=== PATIENT | male | born 1940 | race Caucasian/White ===

== ENCOUNTER 2019-01-29 07:13 | Inpatient (IN) | payer MEDICARE, OTHER ==
--- NOTE | 2019-01-10 13:04 | HP ---
HISTORY AND PHYSICAL: DATE OF ADMISSION/SURGERY: 01/29/19 DATE OF OFFICE VISIT: 01/09/19 SURGEON: Fabiola Lomas MD * (DICTATED BY CARMELITA MISTRY) PROCEDURE: Left total knee arthroplasty. CHIEF COMPLAINT: Left knee pain. HISTORY OF PRESENT ILLNESS: Mr. Ngo is a 78-year-old gentleman with continued complaints of left knee pain. He has failed conservative treatment and elected to proceed with a left total knee arthroplasty. PAST MEDICAL HISTORY: Prostate cancer and GERD. PAST SURGICAL HISTORY: Surgery for bowel obstruction, radiation treatment for prostate cancer, tonsillectomy, penile implant, and left shoulder surgery. CURRENT MEDICATIONS: 1. Terazosin 5 mg a day. 2. PreserVision AREDS 2 tabs twice a day. 3. Calcium with vitamin D. 4. Multivitamin. 5. Tylenol as needed. 6. Megestrol 20 mg 1 to 2 tabs daily. 7. Testosterone suppression injection every 4 months. ALLERGIES: To SULFA. FAMILY HISTORY: Diabetes, COPD, cancer. SOCIAL HISTORY: He is a 78-year-old gentleman, lives with his . He does not smoke or use drugs. Uses alcohol rarely. REVIEW OF SYSTEMS: A complete 14-point review of systems was reviewed with the patient. Positive for GERD and some occasional lightheadedness. He denies history of DVT, PE, hepatitis, HIV, or anesthesia problems. PHYSICAL EXAMINATION GENERAL: He is well developed, well nourished, in no acute distress. VITAL SIGNS: He stands 68 inches tall, weighs 189 pounds. Blood pressure is 120/62, heart rate is 72. HEENT: Normocephalic, atraumatic. NECK: Supple. No palpable lymph nodes. PULMONARY: The lungs are clear to auscultation bilaterally. CARDIO: Regular rate and rhythm. Strong S1, S2. ABDOMEN: Soft, nontender, nondistended. NEUROLOGICAL: He is alert and oriented x3. MUSCULOSKELETAL: Left lower extremity: The skin is intact. There are no open wounds or abrasions. There is a moderate effusion of the left knee joint. Range of motion is 5 to 120 degrees of flexion with patellofemoral crepitus. He has tenderness along the medial joint line. He is able to dorsiflex and plantarflex. He has a 2+ dorsalis pedis pulse and intact sensation. ASSESSMENT AND PLAN: Mr. Ngo is a 78-year-old gentleman with end-stage osteoarthritis of the left knee. He has failed conservative treatment and elected to proceed with a left total knee arthroplasty. The surgery is scheduled for 01/29/[address] Lomas discussed the risks and benefits of the surgery at today's visit and all of his questions were answered. He will follow up with Dr. Lomas 2 weeks after the surgery. CARMELITA MISTRY [id number]/CPS #: [id number] NIEVES
[~2019-01-29 07:13] MED LIST: Buffered Lidocaine 1% SYRIN* 1 ML/SYRINGE INTRADERM ONE; Lactated Ringers 1000 ML Bag* 1,000 ML IV SCH; Tranexamic Acid 1,000 MG in NS 0.9% 50 ML* (outpatient use) IV SCH
--- OUTSIDE RECORDS SUMMARY | 2019-01-29 07:16 | XMS REPORT | Continuity of Care Document ---
:1940 External Reference #:[id number] Author Name Fabiola Lomas M.D. (transmitted by agent of provider Deedee Butts) Address [address] [place] [address] Care Team Providers Name Role Phone Naveen Luna MD - Family Medicine Care Team Information Security Officer Problems Active Problems Provider Date Localized, primary osteoarthritis Jona Brock M.D. Onset: 07/04/2018 Social History Type Date Description Comments Sex Unknown ETOH Use Occasionally consumes alcohol Tobacco Use Start: Unknown End: Patient is a former smoker Unknown Smoking Status Reviewed: 01/09/19 Patient is a former smoker Exercise Type/Frequency Exercises regularly Allergies, Adverse Reactions, Alerts Active Allergies Reaction Severity Comments Date Sulfamethizole RASH 07/04/2018 Ibuprofen 11/23/2018 Medications Active Medications SIG Qnty Indications Ordering Provider Date Terazosin HCL 1 by mouth every Unknown 5mg Capsules day Preservision Areds 2 1 by mouth two Unknown Areds times per day 2 Capsules Calcium 600 + D 1 by mouth twice Unknown a day [id number] Tablets Multivitamin Adult 1 by mouth every Unknown Tablets day Acetaminophen Extra 2 tabs by mouth Unknown Strength every 8 hours as 500mg Tablets needed for pain or fever Magestrol Unknown Testosterone Unknown Suppression Injection Every 4 Months Medications Administered in Office Medication SIG Qnty Indications Ordering Provider Date Depomedrol 40MG Jona Brock M.D. 07/04/2018 Injection Depomedrol 40MG Jona Brock M.D. 07/04/2018 Injection Hyaluron Or Onur Pablo M.D. 08/09/2012 Derivative,Orthovisc,For Intra-Articular Inj Per Dose Injection Hyaluron Or Onur Pablo M.D. 08/09/2012 Derivative,Orthovisc,For Intra-Articular Inj Per Dose Injection Hyaluron Or Onur Pablo M.D. 08/09/2012 Derivative,Orthovisc,For Intra-Articular Inj Per Dose Injection Hyaluron Or Onur Pablo M.D. 08/02/2012 Derivative,Orthovisc,For Intra-Articular Inj Per Dose Injection Hyaluron Or Onur Pablo M.D. 08/02/2012 Derivative,Orthovisc,For Intra-Articular Inj Per Dose Injection Hyaluron Or Onur Pablo M.D. 08/02/2012 Derivative,Orthovisc,For Intra-Articular Inj Per Dose Injection Hyaluron Or Onur Pablo M.D. 07/26/2012 Nat,Orthovisc,For Intra-Articular Inj Per Dose Injection Hyaluron Or Onur Pablo M.D. 07/26/2012 Nat,Orthovisc,For Intra-Articular Inj Per Dose Injection Hyaluron Or Onur Pablo M.D. 01/26/2012 Derivative,Orthovisc,For Intra-Articular Inj Per Dose Injection Hyaluron Or Onur Pablo M.D. 01/26/2012 Derivative,Orthovisc,For Intra-Articular Inj Per Dose Injection Hyaluron Or Onur Pablo M.D. 01/19/2012 Derivative,Orthovisc,For Intra-Articular Inj Per Dose Injection Hyaluron Or Onur Pablo M.D. 01/19/2012 Nat,Orthovisc,For Intra-Articular Inj Per Dose Injection Hyaluron Or Onur Pablo M.D. 01/12/2012 Nat,Orthovisc,For Intra-Articular Inj Per Dose Injection Hyaluron Or Onur Pbalo M.D. 01/12/2012 Nat,Orthovisc,For Intra-Articular Inj Per Dose Injection Depomedrol 80MG Onur Pablo M.D. 06/23/2011 Injection Depomedrol 80MG Onur Palbo M.D. 06/09/2011 Injection Depomedrol 80MG Onur Pablo M.D. 08/26/2010 Injection Immunizations Description No Information Available Vital Signs Date Vital Result Comment 01/09/2019 8:28am Height 68 inches 5'8" Weight 189.00 lb Heart Rate 72 /min BP Systolic 120 mmHg BP Diastolic 62 mmHg Body Temperature 96.2 F Pain Level 6 BMI (Body Mass Index) 28.7 kg/m2 10/29/2018 9:14am Height 68 inches 5'8" Weight 180.00 lb Heart Rate 88 /min BP Systolic 138 mmHg BP Diastolic 90 mmHg Pain Level 5 BMI (Body Mass Index) 27.4 kg/m2 Results Description No Information Available Procedures Description No Information Available Medical Devices Description No Information Available Encounters Type Date Location Provider Dx Diagnosis Office Visit 10/29/2018 [facility] Fabiola Lomas, M25.561 Pain in right 9:00a at [place]iam knee M25.562 Pain in left knee M25.461 Effusion, right knee M25.462 Effusion, left knee M17.0 Bilateral primary osteoarthritis of knee Assessments Date Code Description Provider 01/09/2019 M25.562 Pain in left knee Fabiola Lomas M.D. 01/09/2019 M25.462 Effusion, left knee Fabiola Lomas M.D. 01/09/2019 M17.0 Bilateral primary osteoarthritis of knee Fabiola Lomas M.D. 11/26/2018 M25.562 Pain in left knee Fabiola Lomas M.D. 11/26/2018 M25.462 Effusion, left knee Fabiola Lomas M.D. 11/26/2018 M17.0 Bilateral primary osteoarthritis of knee Fabiola Lomas M.D. 10/29/2018 M25.561 Pain in right knee Fabiola Lomas M.D. 10/29/2018 M25.562 Pain in left knee Fabiola Lomas M.D. 10/29/2018 M25.461 Effusion, right knee Fabiola Lomas M.D. 10/29/2018 M25.462 Effusion, left knee Fabiola Lomas M.D. 10/29/2018 M17.0 Bilateral primary osteoarthritis of knee Fabiola Lomas M.D. Plan of Treatment Future Appointment(s):02/11/2019 9:30 am - [facility] [place]/29/2019 4:30 pm - Fabiola Lomas M.D. at [facility]01/09/2019 - Fabiola Lomas M.D.M25.562 Pain in left kneeFollow up:Follow up: 2 weeks after [id number] Effusion, left kneeM17.0 Bilateral primary osteoarthritis of knee Functional Status Description No Information Available Mental Status Description No Information Available Referrals Description No Information Available
--- OUTSIDE RECORDS SUMMARY | 2019-01-29 07:16 | XMS REPORT | Continuity of Care Document ---
:1940 External Reference #:[id number] Author Name Pauline Lopez, SABINA Address [address] [place] [address] Care Team Providers Name Role Phone Naveen Fermin MD - Ophthalmology Care Team Information Supervisor Fitting Problems Active Problems Provider Date Malaise and fatigue Naveen Luna M.D. Onset: 09/21/2011 Infective otitis externa Naveen Luna M.D. Onset: 04/20/2012 Otitis media Naveen Luna M.D. Onset: 04/20/2012 Cataract Naveen Luna M.D. Onset: 05/01/2012 Disorder of prostate Naveen Luna M.D. Onset: 05/01/2012 Adult health examination Naveen Luna M.D. Onset: 05/01/2012 Essential hypertension Naveen Luna M.D. Onset: 05/01/2012 Dizziness and giddiness Naveen Luna M.D. Onset: 09/03/2013 Backache Naveen Luna M.D. Onset: 12/27/2013 Acute upper respiratory infection Naveen Luna M.D. Onset: 03/10/2014 Social History Type Date Description Comments Sex Unknown Allergies, Adverse Reactions, Alerts Active Allergies Reaction Severity Comments Date Sulfa Drugs 08/28/2007 Medications Active Medications SIG Qnty Indications Ordering Date Provider Transderm-Scop (1.5 use q3days 1bx Naveen Coker 08/14/2018 MG) Alejandro Luna 1mg/3Days Patches 72HR Preservision Areds 2 1 by mouth every Naveen Coker 03/01/2016 day Alejandro Luna Areds 2 Capsules Calcium 600 + D one by mouth daily Naveen Coker 03/01/2016 Alejandro Luna [id number] Tablets Terazosin HCL take one capsule by Unknown 5mg mouth once a day Capsules Multivitamin Adult 1 by mouth every Unknown day Tablets Acetaminophen ER 1 by mouth bid Unknown 650mg Tablets ER Testosterone Cypionate use 1/2 cubic Unknown centimeters every 200mg/ml Solution 3-4 wks History Medications Ciprodex Use 4 drops 1bottles H60.92 Ronnie Ortiz, 07/04/2018 - 0.3-0.1% twice a day in M.D. 10/30/2018 Suspension the right ear for 7 days. Amoxicillin 1 tablet three 14tabs H66.91 Ronnie A. Angel, 06/18/2018 - 500mg times a day for M.D. 06/18/2018 Tablets 7 days. Amoxicillin 1 tablet three 21tabs H66.91 Ronnie A. Angel, 06/18/2018 - 500mg times a day for M.D. 07/04/2018 Tablets 7 days. Immunizations CPT Code Status Date Vaccine Lot # [id number] Given 11/28/2017 High-Dose, Influenza Virus Vacccine-fluzone 65 and older 94354 Given 12/17/2016 High-Dose, Influenza Virus Vacccine-fluzone 65 and older 12838 Given 07/05/2016 Pneumococcal Conjugate Vacc-13 [id number] Given 12/25/2014 High-Dose, Influenza Virus Vacccine-fluzone 65 and older 00714 Given 05/22/2008 Zostivax [id number] [id number] Given 02/05/2008 Pneumococcal Immunization [id number] 98686 Given 02/05/2008 DO Not Use Split Influenza Virus Vaccine [id number] Vital Signs Date Vital Result Comment 12/11/2018 3:20pm BP Systolic 130 mmHg BP Diastolic 82 mmHg Heart Rate 62 /min Body Temperature 97.5 F Respiratory Rate 16 /min Height 68.25 inches 5'8.25" Weight 186.00 lb BMI (Body Mass Index) 28.1 kg/m2 10/30/2018 10:45am BP Systolic 120 mmHg BP Diastolic 70 mmHg Heart Rate 80 /min Body Temperature 98.4 F Respiratory Rate 16 /min Height 68.25 inches 5'8.25" Weight 181.00 lb BMI (Body Mass Index) 27.3 kg/m2 Results Test Date Facility Test Result H/L Range Note CBC Electronic (Fma New) 12/11/2018 [facility] WBC 6.44 4.0-10.0 (607)- - RBC 3.77 Low 3.93-6.0 Hemoglobin (Fma/CMC/CTX) 11.8 g/dL Low 12.0-17.0 Hematocrit (Fma/CMC/CTX) 35.6 % 35.0-50.0 Mean Corpuscular Vol 94.4 fL 80-95 Mean Corpuscular Hemoglobin 31.3 pg 25.6-32.2 Mean Corpuscular Hemo Concen 33.1 g/dL 32.2-36.0 Platelets 199 10^3/ul 163-400 RDW-CV 12.3 11.6-14.4 Mean Platelet Volume 10.4 fL 8.0-12.4 Absolute Neutrophils BLD 3.54 1.56-6.13 Absolute Lymphocytes 2.15 1.18-3.74 Absolute Monocytes BLD Auto 0.52 0.24-0.82 Absolute Eos Blood 0.17 0.04-0.54 Absolute Basophils 0.05 0.01-0.08 Neutrophil % 54.9 % 34.0-70.0 Lymph% 33.4 % 20.0-52.0 Monocytes % 8.1 % 5.0-12.0 Eos % 2.6 % 0.7-7.0 Basophil% 0.8 % 0-1.2 CBC Auto Diff 11/12/2018 [facility] White Blood Count 6.0 10^3/uL Normal 3.5- 10.8 Red Blood Count 3.78 10^6/uL Low 4.18-5.48 Hemoglobin 12.1 g/dL Low 14.0-18.0 Hematocrit 35 % Low 42-52 Mean Corpuscular Volume 93 fL Normal 80-94 Mean Corpuscular Hemoglobin 32 pg High 27-31 Mean Corpuscular HGB Conc 34 g/dL Normal 31-36 Red Cell Distribution Width 13 % Normal 10-15 Platelet Count 183 10^3/uL Normal 150-450 Mean Platelet Volume 8.4 fL Normal 7.4-10.4 Abs Neutrophils 3.6 10^3/uL Normal 1.5-7.7 Abs Lymphocytes 1.7 10^3/uL Normal 1.0-4.8 Abs Monocytes 0.5 10^3/uL Normal 0-0.8 Abs Eosinophils 0.1 10^3/uL Normal 0-0.6 Abs Basophils 0.0 10^3/uL Normal 0-0.2 Abs Nucleated RBC 0.0 10^3/uL Granulocyte % 60.7 % Lymphocyte % 28.5 % Monocyte % 8.4 % Eosinophil % 1.7 % Basophil % 0.7 % Nucleated Red Blood Cells % 0.1 Laboratory test finding 11/12/2018 [facility] PSA Diagnostic 0.622 ng/mL Normal 0-4.0 Basic Metabolic Panel 11/12/2018 [facility] Sodium 141 mmol/L Normal 135-145 Potassium 4.2 mmol/L Normal 3.5-5.0 Chloride 106 mmol/L Normal 101-111 Co2 Carbon Dioxide 26 mmol/L Normal 22-32 Anion Gap 9 mmol/L Normal 2-11 Glucose 114 mg/dL High 70-100 Blood Urea Nitrogen 28 mg/dL High 6-24 Creatinine 1.40 mg/dL High 0.67-1.17 BUN/Creatinine Ratio 20.0 Normal 8-20 Calcium 9.7 mg/dL Normal 8.6-10.3 Egfr Non- 48.9 >60 Egfr 59.2 >60 1 Laboratory test 11/12/2018 [facility] Testosterone Total < 10.00 ng/dL Low 240- 950 2 finding Laboratory test 10/16/2018 [facility] Surgical Pathology SEE RESULT 3, 4 finding BELOW Laboratory test 09/10/2018 [facility] Testosterone Total < 10.00 ng/dL Low 240- 950 finding PSA Diagnostic 0.492 ng/mL 0-4.0 5 1 Because ethnic data is not always readily available, this report includes an eGFR for both -Americans and non- Americans. The National Kidney Disease Education Program (NKDEP) does not endorse the use of the MDRD equation for patients that are not between the ages of 18 and 70, are , have extremes of body size, muscle mass, or nutritional status, or are non- or non-. According to the National Kidney Foundation, irrespective of diagnosis, the stage of the disease is based on the level of kidney function: Stage Description GFR(mL/min/1.73 m(2)) 1 Kidney damage with normal or decreased GFR 90 2 Kidney damage with mild decrease in GFR 60-89 3 Moderate decrease in GFR 30-59 4 Severe decrease in GFR 15-29 5 Kidney failure <15 (or dialysis) 2 Consistent with Previous Results Reported on 09/10/18 3 4192-A:Morphology: erythematous papule with hyperkeratotic scale;DDX: Squamous Cell Carcinoma vs. 4 SEE RESULT BELOW Name: JOIE NGO : [address]: Kaylin Mendez MD Acct: [id number] Unit: [id number] AGE: 78 Location: [facility] Re10/16/18 SEX: M Status: REG REF SPEC: [id number] BOB: [birth year][address] [facility] [address]: Kaylin Mendez MD REQ: [id number] RECD: 10/16/18 STATUS: MARK LARA DR: Naveen Luna MD _ ORDERED: LEVEL 4 COMMENTS: [id number] FINAL DIAGNOSIS Skin, right upper lateral abdomen, biopsy: -- Verrucous seborrheic keratosis, irritated and inflamed. PRE-OPERATIVE DIAGNOSIS Erythematous papule with hyperkeratotic scale, squamous cell carcinoma vs inflamed seborrheic keratosis GROSS DESCRIPTION The specimen is received in formalin labeled, Right Upper Lateral Abdomen, and consists of a 0.9 x 0.7 cm magallanes-mojica ovoid scaly skin shave with a central 0.7 x 0.5 x 0.4 cm joel keratotic nodule. The specimen is inked, serially sectioned and entirely submitted in one cassette. Signed by and Reported on: Pauline Espinosa MD 10/17/18 1014 END OF REPORT DEPARTMENT OF PATHOLOGY, [address] [place] [address] Hermann Santoro M.D. Director [facility] # [id number] 5 Serum levels of PSA measured using the [employer] Dane DXI Hybritech immunoassay should not be interpreted as absolute evidence of the presence or absence of disease. The PSA value should be used in conjunction with other pertinent clinical diagnostic procedures. A PSA value in the range of 0.1 to 0.6 ng/ml is indeterminate if being used as an indicator of recurrent or residual disease. The values obtained with different assay methods or kits cannot be used interchangeably. Procedures Date Code Description Status 10/30/2018 47832 Electrocardiogram Complete Completed 03/13/2008 05162167 Colonoscopy Completed Medical Devices Description No Information Available Encounters Type Date Location Provider Dx Diagnosis Office Visit 07/04/2018 [facility] Cervantes, H60.92 Unspecified otitis 1:45p PA externa, left ear Office Visit 06/18/2018 [facility] Cervantes, H66.91 Otitis media, 9:00a CARMELITA unspecified, right ear Assessments Date Code Description Provider 12/11/2018 R42 Dizziness and giddiness SABINA Perales 10/30/2018 Z00.00 Encounter for general adult medical Naveen Luna M.D. examination without abnormal findings 10/30/2018 C61 Malignant neoplasm of prostate Naveen Luna M.D. 10/30/2018 M25.562 Pain in left knee Naveen Luna M.D. 07/04/2018 H60.92 Unspecified otitis externa, left ear CARMELITA Nguyen 06/18/2018 H66.91 Otitis media, unspecified, right ear CARMELITA Nguyen Plan of Treatment Future Appointment(s):12/31/2018 1:00 pm - Naveen Luna M.D. at [facility]/11/2018 - Pauline Lopez, [id number] Dizziness and giddinessAllComments: Medication Management Patient Understands medications he 's taking? Yes No Are there Barriers to Adherence? Yes No Has the patient been asked about herbal supplements and therapies, andOTC meds? Yes No As always, we strongly encourage a healthy diet and making physical activity a part of your every day life. If you have questions about how or where to start, please contact the office. Functional Status Description No Information Available Mental Status Description No Information Available Referrals Refer to Dr Reason for Referral Status Appt Date Rei Massey MD chronic otitis externa, hearing aide use. jw Scheduled 07/27/2018 [address] [place], [place] [id number] [phone]
[2019-01-29] MEDS ORDERED: ceFAZolin 2 GM in NS PREMIX(*) 2 GM/100 ML BAG IVPB ONE (07:37)
[2019-01-29] MEDS ORDERED: Buffered Lidocaine 1% SYRIN* 1 ML/SYRINGE INTRADERM ONE (07:37)
[2019-01-29] MEDS ORDERED: Propofol* 10 MG/ML 20 ML BTL ONE (07:53)
[2019-01-29] MEDS ORDERED: Midazolam* 1 MG/ML 2 ML VIAL (2 MG) ONE (07:54)
[2019-01-29] MEDS ORDERED: Dexmedetomidine* 200 MCG/2 ML 2 ML VIAL ONE (07:54)
[2019-01-29] MEDS ORDERED: ROPIVACAINE 5 MG/ML 30 ML BTL (0.5%) ONE ×2 (07:54→08:45)
[2019-01-29] MEDS ORDERED: Lidocaine 2% PF * 5 ML VIAL ONE ×3 (08:02→09:05)
[2019-01-29] MEDS ORDERED: Bupivacaine 0.5% SDV PF* 30ML VIAL ONE (09:05)
[2019-01-29] MEDS ORDERED: Propofol* 500 MG/50 ML BTL ONE (09:20)
[2019-01-29] MEDS ORDERED: KETAMINE HCL* 50 MG/ML 10 ML VIAL ONE (09:22)
[2019-01-29] MEDS ORDERED: Dexamethasone IV* 4 MG/ML 1 ML (4 MG) ONE (09:55)
[2019-01-29] MEDS ORDERED: Atropine 1MG/ML INJ* 1 ML VIAL ONE (10:21)
[2019-01-29] MEDS ORDERED: EPHEDrine (Pressors)* 50 MG/ML VIAL ONE (10:26)
[2019-01-29] MEDS ORDERED: Ondansetron INJ* 2 MG/ML VIAL IV PRN ×2 (10:27→11:41)
[2019-01-29] MEDS ORDERED: Ketorolac INJ* 30 MG/ML 1 ML VIAL IV PRN (10:27)
[2019-01-29] MEDS ORDERED: Acetaminophen IV 1GM/100ML * 10 MG/ML VIAL IVPB ONE (10:27)
[2019-01-29] MEDS ORDERED: Naloxone* 0.4 MG/ML 1 ML VIAL IV PRN (10:27)
[2019-01-29] MEDS ORDERED: oxyCODONE TAB* 5 MG TAB PO PRN (10:27)
[2019-01-29] MEDS ORDERED: HYDROmorphone INJ1* 1 MG/ML SYRINGE IV PRN (10:27)
[2019-01-29] MEDS ORDERED: Polyethylene Glycol 3350* 17 GM PACKET PO PRN (11:41)
[2019-01-29] MEDS ORDERED: diPHENhydraMINE PO* 25 MG PO PRN (11:41)
[2019-01-29] MEDS ORDERED: Ondansetron ODT TAB* 4 MG PO PRN (11:41)
[2019-01-29] MEDS ORDERED: traMADol TAB* 50 MG PO PRN (11:41)
[2019-01-29] MEDS ORDERED: diPHENhydraMINE IV* 50 MG/ML 1 ml VIAL (BENADRYL) IV PRN (11:41)
[2019-01-29] MEDS ORDERED: Morphine INJ* 2 MG/ML 1 ML SYRINGE (TWO MG - NEW SYRINGE VERSION) IV PRN (11:41)
[2019-01-29] MEDS ORDERED: Magnesium Hydroxide LIQ* 30 ML UDC PO PRN (11:41)
[2019-01-29] MEDS ORDERED: Ondansetron TAB* 4 MG PO PRN (11:41)
[2019-01-29] MEDS ORDERED: Labetalol IV* 5 MG/ML 20 ML VIAL ONE (12:35)
[2019-01-29] MEDS: Lactated Ringers 1000 ML Bag* 1,000 ML IV SCH (14:07)
[2019-01-29] MEDS: Acetaminophen TAB* 325 MG PO SCH ×2 (14:11→20:24)
[2019-01-29] MEDS: oxyCODONE/Acetamin 5/325 MG* TAB PO PRN ×2 (14:35→20:03)
--- NOTE | 2019-01-29 15:27 | OP ---
Operative Report - Blank - Operative Report Date of Operation: 01/29/19 Note: JOIE VILLARREAL 1940 Date of Surgery: 01/29/19 Fabiola Lomas MD [employer]ospace Physiological Technician: Liyah MAE did help throughout the procedure with preparation of the knee, wound retraction, manipulation of the knee, and wound closure. Anesthesiologist: Leeroy PLATT Anesthesia Type: Spinal Preoperative Diagnosis: Left severe degenerative osteoarthritis of the knee Postoperative Diagnosis: As above Procedure Performed: Left Total Knee Arthroplasty Tourniquet time: 53 minutes Complications: None Specimen: Bone and cartilage from the left knee joint sent to pathology. Hardware Used: Cemented Read and Nephew total knee hardware was used - For the femur a size 6 left legion posterior stabilized femoral component, for the tibia a size 6 left nakia II tibial baseplate, for the insert a size 11mm 5-6 posterior stabilized articular polyethylene insert, and for the patella a size 35 3-peg all poly patella. Brief History/Indication: JOIE VILLARREAL was known in clinic and had a history of severe left knee pain and swelling. He failed conservative treatment with anti-inflammatories, pain pills, intra-articular injections and physical therapy. He elected to undergo left total knee arthroplasty due to continued pain and decreased quality of life. Radiographs showed severe end stage osteoarthritis of the knee with bone on bone contact. Informed consent was obtained from the patient. He understood the risks of surgery included but were not limited to: bleeding, infection, damage to nearby structures, intraoperative fracture, nerve palsy, failure of the hardware, early loosening, knee stiffness or loss of motion, anesthesia complications, stroke, heart attack , blood clot and . He wished to proceed. Intra-Operative Findings: Intraoperatively the patient was noted to have severe loss of cartilage in all 3 compartments of the knee. Description of the Procedure: JOIE VILLARREAL was identified in the preanesthesia unit. His left knee was marked as the correct operative side. Informed consent was signed and placed in the chart. The patient was taken to the operating room and placed under anesthesia without complication. A lopez catheter was placed. A tourniquet was placed on the left thigh. The left lower extremity was prepped and draped in the usual sterile fashion. Preoperative time-out was made to correctly identify the patient, side and site. Appropriate intraoperative antibiotics were given within one hour of incision. Tourniquet was inflated. A midline incision was made and carried sharply down to the extensor mechanism. A new 10 blade was used to make a standard medial parapatellar arthrotomy. The patella was subluxed laterally. Electrocautery was used to dissect soft tissue off the superomedial tibia to the midsagittal plane. The knee was flexed up. The anterior horn of the lateral meniscus and the ACL were sharply incised. A drill was used to enter the distal femur. The intramedullary distal femoral cutting guide was pinned on the distal femur. The oscillating saw was used to make the distal femoral cut. The external rotation guide was pinned on the distal femur and the distal femur was sized to a size 6. The size 6 multi-cutting jig was pinned on the distal femur. The oscillating saw was used to make the appropriate 4 chamfer cuts. Next the PCL was completely released. The extramedullary tibial cutting guide was pinned on the proximal tibia and the oscillating saw was used to make the proximal tibial cut perpendicular to the mechanical axis of the tibia. The bone was carefully removed. The knee was brought out into full extension. The spacer block was placed and had excellent fit with the knee in full extension. The medial and lateral ligaments were well balanced. The flexion and extension gaps were well balanced. The knee was flexed up. Lamina pilot safety inspector was placed both medially and laterally. Any remaining meniscus was removed with electrocautery. Curved osteotome was used to remove any posterior osteophytes. The tibial tray and drop arsalan were placed and confirmed a satisfactory tibial cut. The size 6 left femoral trial was impacted onto the distal femur. This trial had excellent fit and stability. The box for the posterior stabilized implant was prepared using a box cut osteotome and a reamer. Next a tibial tray trial and 11 mm insert trial was placed. The knee was taken through a range of motion and had full extension to 130 degrees of flexion. Patellofemoral tracking was satisfactory. The patella was inverted and sized to a size 35. Three peg holes were drilled through the size 35 drill guide. The trial patella was placed and the knee was taken through a range of motion. There was satisfactory patellofemoral tracking. All trials were removed. The tibia was subluxed anteriorly and sized to a size 6. The proximal tibial was prepared with a size 6 keel punch. All bony cut surfaces were irrigated with sterile saline and dried. Final implants were cemented into place starting with the tibia, followed by the femur, and last the patella. A 9 mm insert trial was placed and the knee was brought into full extension. Tourniquet was turned down and the knee was copiously irrigated with sterile saline. Electrocautery was used to obtain meticulous hemostasis. Once the cement had fully cured, the insert trial was removed. Any excess cement was removed from around the hardware and capsule. Final insert chosen was a 11 mm posterior stabilized Nakia II articular insert size 5-6. Stability of the insert was checked and noted to be stable. The extensor mechanism was closed using number 1 vicryls. The rest of the incision was closed in a layered fashion using 0 and 2-0 vicryls. The skin was closed using 3-0 nylon suture. Sterile xeroform, 4x4s and webril were used to cover the incision. Serg wrap and cold pack were used to cover the dressings. The patients anesthesia was reversed without difficulty. He was taken to the PACU in stable condition. Intended weight-bearing will be as tolerated.
--- NOTE | 2019-01-29 16:19 | PN ---
Progress Note - Progress Note Date of Service: 01/29/19 Note: OOB to chair, pain moderate, controlled with PO meds; able to dorsi flex/ plantar flex, 2+ DP pulse and intact sensation
[2019-01-29] MEDS: oxyCODONE TAB* 5 MG TAB PO PRN ×2 (16:28→22:31)
[2019-01-29] MEDS: Cyclobenzaprine TAB* 10 MG PO PRN ×2 (16:29→22:31)
[2019-01-29] MEDS: ceFAZolin 1 GM ADVAN(*) 1 GM in NS 0.9% 50 ML* 50 ML IVPB SCH (17:42)
[2019-01-29] MEDS: Magnesium Hydroxide LIQ* 30 ML UDC PO SCH (20:05)
[2019-01-29] MEDS: Docusate CAP* 100 MG PO SCH (20:05)
[2019-01-29] MEDS: Terazosin CAP* 5 MG PO SCH (20:24)
[2019-01-29] MEDS ORDERED: Multivitamins/Mins (NF) AREDS2 1 CAP CAP PO SCH (21:00)
[2019-01-30] MEDS: oxyCODONE/Acetamin 5/325 MG* TAB PO PRN ×4 (00:13→18:14)
[2019-01-30] MEDS: Lactated Ringers 1000 ML Bag* 1,000 ML IV SCH ×3 (00:42→22:54)
[2019-01-30] MEDS: ceFAZolin 1 GM ADVAN(*) 1 GM in NS 0.9% 50 ML* 50 ML IVPB SCH ×2 (02:35→10:01)
[2019-01-30] MEDS: oxyCODONE TAB* 5 MG TAB PO PRN ×4 (02:48→22:04)
[2019-01-30] MEDS: Acetaminophen TAB* 325 MG PO SCH ×3 (05:23→22:00)
[2019-01-30] MEDS: Cyclobenzaprine TAB* 10 MG PO PRN (05:24)
[2019-01-30 06:47] LABS: Hematocrit 32 % (42-52); Hemoglobin 11.2 g/dL (14.0-18.0); Mean Platelet Volume 8.9 fL (7.4-10.4); Platelet Count 171 10^3/uL (150-450)
[2019-01-30 06:55] LABS: BUN/Creatinine Ratio 19.3 (8-20); Calcium 9.1 mg/dL (8.6-10.3); EGFR Non-African American 65.3 (>60); Potassium 3.7 mmol/L (3.5-5.0)
[2019-01-30] MEDS: Docusate CAP* 100 MG PO SCH ×2 (08:34→21:58)
[2019-01-30] MEDS: Magnesium Hydroxide LIQ* 30 ML UDC PO SCH ×2 (08:34→21:58)
[2019-01-30] MEDS: Apixaban* 2.5 MG TAB PO SCH ×2 (08:34→21:57)
[2019-01-30] MEDS: Vitamin THERAPEUTIC TAB PO SCH (08:34)
[2019-01-30] MEDS: Megestrol TAB* 40 MG PO SCH (08:35)
--- NOTE | 2019-01-30 10:52 | PN ---
Progress Note - Progress Note Date of Service: 01/30/19 SOAP: Subjective: []Patient seen and examined at bedside. He has 6/10 pain immediately after physical therapy, had 4/10 pain prior to PT, has just been given percocet for pain control. Denies CP, SOB, dizziness, nausea. Objective: []Gen: Appears well, NAD LLE: Dressing CDI, thigh soft, df/pf intact, dp2+, sensation intact to light touch distally Calves supple and nontender without erythema, edema or palpable cords Assessment: []POD 1 sp LTK Plan: []WBAT PT Desires dc home tomorrow Pt feels pain is well controlled at rest, if pain does not subside with rest after PT, he will report to nursing if desires med change. Vital Signs Temp 99.5 F 01/30/19 08:44 Pulse 80 01/30/19 08:44 Resp 18 01/30/19 10:00 BP 126/68 01/30/19 08:44 Pulse Ox 97 01/30/19 08:44 Intake & Output 01/29/19 01/30/19 01/30/19 18:59 06:59 18:59 Intake Total 1000 1538 390 Output Total 550 550 Balance 450 988 390 Weight 190 lb Intake: IV Fluids 1000 980 LR 1000 980 IVPB 58 ABX - CEFAZOLIN 58 Oral 500 390 Output: Carr 350 550 Estimated Blood Loss 200 Laboratory Last Values Hgb 11.2 g/dL (14.0-18.0) L 01/30/19 06:05 Hct 32 % (42-52) L 01/30/19 06:05 Plt Count 171 10^3/uL (150-450) 01/30/19 06:05 MPV 8.9 fL (7.4-10.4) 01/30/19 06:05 Sodium 137 mmol/L (135-145) 01/30/19 06:05 Potassium 3.7 mmol/L (3.5-5.0) 01/30/19 06:05 Chloride 104 mmol/L (101-111) 01/30/19 06:05 Carbon Dioxide 27 mmol/L (22-32) 01/30/19 06:05 Anion Gap 6 mmol/L (2-11) 01/30/19 06:05 BUN 21 mg/dL (6-24) 01/30/19 06:05 Creatinine 1.09 mg/dL (0.67-1.17) 01/30/19 06:05 Est GFR ( Amer) 79.0 (>60) 01/30/19 06:05 Est GFR (Non-Af Amer) 65.3 (>60) 01/30/19 06:05 BUN/Creatinine Ratio 19.3 (8-20) 01/30/19 06:05 Glucose 145 mg/dL (70-100) H 01/30/19 06:05 Calcium 9.1 mg/dL (8.6-10.3) 01/30/19 06:05
[2019-01-30] MEDS: Terazosin CAP* 5 MG PO SCH (21:57)
[2019-01-31] MEDS: oxyCODONE/Acetamin 5/325 MG* TAB PO PRN ×3 (04:03→14:53)
[2019-01-31 05:24] LABS: Hematocrit 30 % (42-52); Hemoglobin 10.7 g/dL (14.0-18.0); Mean Platelet Volume 8.7 fL (7.4-10.4); Platelet Count 156 10^3/uL (150-450)
[2019-01-31] MEDS: Acetaminophen TAB* 325 MG PO SCH ×2 (06:20→13:31)
[2019-01-31] MEDS: Apixaban* 2.5 MG TAB PO SCH (08:25)
[2019-01-31] MEDS: Docusate CAP* 100 MG PO SCH (08:25)
[2019-01-31] MEDS: Megestrol TAB* 40 MG PO SCH (08:25)
[2019-01-31] MEDS: Vitamin THERAPEUTIC TAB PO SCH (08:25)
[2019-01-31] MEDS: Magnesium Hydroxide LIQ* 30 ML UDC PO SCH (08:28)
--- NOTE | 2019-01-31 09:44 | DS ---
Orthopedic Discharge Summary - Discharge Summary Date of Admission:01/29/19 Date of Discharge: 01/31/19 Date of Surgery: 01/29/19 Attending Orthopedic Provider: Dr Lomas Pre-operative Diagnosis: Left knee osteoarthritis Operative Procedure: left total knee replacement Disposition of Patient: home with vns Condition of Patient: stable History: JOIE VILLARREAL is a 78 year old M with years of increasingly severe left knee pain. Patient has failed conservative management and has elected to undergo a left total knee replacement Hospital Course: JOIE was admitted to [facility] on 01/29/19. Patient underwent a left total knee replacement without complication followed by a brief recovery in PACU and transfer to the Short Stay Surgical Unit in stable condition. Our physical therapy also participated in this patients care. Post-op day 1: patient was alert and in no acute distress. Dressing was clean, dry and intact. Operative extremity dorsiflexion and plantarflexion intact, sensation intact to light touch distally, DP2+. Post-op day two: dressing was changed, incision was clean, dry and intact. Patient was deemed to be medically and orthopedically stable for discharge. Physical therapy goals were met. Home Medications Medication Instructions Recorded Confirmed Type Calcium Carbonate/Vitamin D3 1 tab PO QAM 05/02/12 01/29/19 History [Calcium 600-Vit D3 200 Tablet] Multivitamin [Multivitamins] 1 cap PO QAM 05/02/12 01/29/19 History Terazosin CAP* [Hytrin CAP 5 MG*] 5 mg PO BEDTIME 04/11/14 01/29/19 History Megestrol Acetate 20 mg PO QAM 01/16/19 01/29/19 History Testosterone Suppression 1 syringe INJ SEE INSTRUCTIONS 01/16/19 01/29/19 History Vit C/E/Zn/Coppr/Lutein/Zeaxan 1 each PO BID 01/16/19 01/29/19 History [Preservision Areds 2 Softgel] Acetaminophen TAB* [Tylenol TAB*] 975 mg PO Q8HR tab 01/31/19 Rx Apixaban* [Eliquis*] 2.5 mg PO BID #60 tab 01/31/19 Rx Docusate CAP* [Colace Cap*] 100 mg PO BID PRN #90 cap 01/31/19 Rx oxyCODONE/Acetamin 5/325 MG* 2 tab PO Q4H PRN #70 tab MDD 10 01/31/19 Rx [Percocet 5/325 TAB*] Discharge Instructions following Orthopedic Surgery: Activity: * Weight Bearing as tolerated * Continue physical therapy and occupational therapy exercises as shown * Home PT Wound care: * OK to shower on post-op day 3, no bathing, swimming, or submerging wound. * Use gentle soap, pat dry. Cover with gauze, MARGARITA wrap or tape. * Visiting home nurse to do wound checks. Call Orthopedic office for: * Increased drainage * Redness * Increased pain * Fever Go to ER with shortness of breath or chest pain. Diet: * Regular diet * Increase fluids and fiber to prevent constipation. * Continue to use stool softeners, call office if no bowel motion within 48 hours. Medications See Home Medication List in your packet for medications that you should take after discharge. DVT Prophylaxis: Increases bleeding tendency Eliquis Dosin.5 mg, 1 tab every 12 hours x 30 days post op Pain Control: Percocet Dosin/325 mg 1-2 tabs by mouth every 4-6 hours as needed for pain. Maximum of 10 tabs per day. Hold for sedation, wean off as soon as pain allows Please note that Percocet contains Tylenol (acetaminophen). Maximum daily dose of Tylenol is 4000 mg from all sources. Antibiotics are required prior to any dental work. FOLLOW UP: Follow up with [[facility]] Within 10-14 days, call for appointment Please call our office with any questions or concerns ([phone]) [facility]
--- NOTE | 2019-01-31 09:49 | PN ---
Progress Note - Progress Note Date of Service: 01/31/19 SOAP: Subjective: []Pt seen at bedside, pain is well controlled, denies CP, SOB, dizziness, nausea Objective: [] Gen: Appears well, NAD LLE: Dressing changed and incision is CDI, thigh soft, df/pf intact, dp2+, sensation intact to light touch distally Calves supple and nontender without erythema, edema or palpable cords Assessment: []POD 2 sp LTK Plan: []WBAT PT Pain well controlled, desires dc home eliquis 2.5 mg po BID x 30 days post op Vital Signs Temp 98.2 F 01/31/19 07:43 Pulse 93 01/31/19 07:43 Resp 20 01/31/19 08:26 BP 114/57 01/31/19 07:43 Pulse Ox 96 01/31/19 08:00 Intake & Output 01/30/19 01/31/19 01/31/19 18:59 06:59 18:59 Intake Total 2726 2280 1446 Output Total 400 75 Balance 2726 1880 1371 Intake: IV Fluids 1096 980 846 ABX - CEFAZOLIN 110 LR 986 980 846 Oral 1630 1300 600 Output: Urine 400 75 Other: Estimated Void Small # Voids 1 1 Laboratory Last Values Hgb 10.7 g/dL (14.0-18.0) L 01/31/19 04:42 Hct 30 % (42-52) L 01/31/19 04:42 Plt Count 156 10^3/uL (150-450) 01/31/19 04:42 MPV 8.7 fL (7.4-10.4) 01/31/19 04:42 Sodium 137 mmol/L (135-145) 01/30/19 06:05 Potassium 3.7 mmol/L (3.5-5.0) 01/30/19 06:05 Chloride 104 mmol/L (101-111) 01/30/19 06:05 Carbon Dioxide 27 mmol/L (22-32) 01/30/19 06:05 Anion Gap 6 mmol/L (2-11) 01/30/19 06:05 BUN 21 mg/dL (6-24) 01/30/19 06:05 Creatinine 1.09 mg/dL (0.67-1.17) 01/30/19 06:05 Est GFR ( Amer) 79.0 (>60) 01/30/19 06:05 Est GFR (Non-Af Amer) 65.3 (>60) 01/30/19 06:05 BUN/Creatinine Ratio 19.3 (8-20) 01/30/19 06:05 Glucose 145 mg/dL (70-100) H 01/30/19 06:05 Calcium 9.1 mg/dL (8.6-10.3) 01/30/19 06:05
[2019-01-31] MEDS ORDERED: Bisacodyl SUPP* 10 MG SUPP PR PRN (11:41)
[2019-01-31 15:18] VITALS: BP 112/61
== END 2019-01-31 15:15 | disposition home health service (06) | DRG 470 ==
LOC: AA 07:13 → SSU 11:41
PROVIDERS: ADMIT Orthopaedic Surgery Adult Reconstructive Orthopaedic Surgery; ATTEND Orthopaedic Surgery Adult Reconstructive Orthopaedic Surgery
PROC: 0SRD0J9 Replacement of Left Knee Joint with Synthetic Substitute, Cemented, Open Approach (ICD-10-PCS; principal; 2019-01-29 09:00)
DX: M17.12 Unilateral primary osteoarthritis, left knee (principal); K21.9 Gastro-esophageal reflux disease without esophagitis; M25.462 Effusion, left knee; C61 Malignant neoplasm of prostate; M25.762 Osteophyte, left knee; Z92.3 Personal history of irradiation; Z88.2 Allergy status to sulfonamides; Z87.891 Personal history of nicotine dependence
CPT/HCPCS: 36415; 80048; 85014; 85018; 85049; 88305; 88311; A9270-GY; C1776; G8978-GP-CK; G8979-GP-CI; J0461; J0690; J1100; J2250; J2704; J2795; J3490